=== PATIENT | female | born 2000 | race Hispanic/Latino ===

== ENCOUNTER 2025-01-28 23:32 | Emergency (ER) | payer SELFPAY ==
--- NOTE | 2025-01-29 00:21 | ER ---
Nurse's Notes [facility] Name: Tanesha Weaver Age: 24 yrs Sex: Female : 2000 Arrival Date: 01/28/2025 Time: 23:32 Bed 6 Private MD: Diagnosis: Foreign body in vulva and vagina-suspected, not found Presentation: 01/29 00:03 Chief complaint: Patient states: PT STATES SHE PUT IN A TAMPON AT [employer] 8AM THIS br2 MORNING AND DOESN'T REMEMBER IF SHE TOOK IT OUT. NO SYMPTOMS, JUST CONCERNED BECAUSE SHE CAN'T FIND STRING. Coronavirus screen: Client denies travel out of the [place] in the last 14 days. Ebola Screen: Patient denies exposure to infectious person. Initial Sepsis Screen: Does the patient meet any 2 criteria? No. Patient's initial sepsis screen is negative. Does the patient have a suspected source of infection? No. Patient's initial sepsis screen is negative. Risk Assessment: Do you want to hurt yourself or someone else? Patient reports no desire to harm self or others. Onset of symptoms is unknown. 00:03 Method Of Arrival: Ambulatory br2 00:03 Acuity: WENDI 4 br2 Triage Assessment: 00:05 General: Appears in no apparent distress. comfortable, Behavior is calm, cooperative. br2 Pain: Denies pain. 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 - Infectious Disease History:: Denies. - Social history:: Smoking status: Patient denies any tobacco usage or history of. Patient/guardian denies using alcohol, street drugs. - Family history:: not pertinent. Screenin:24 [facility] ED Fall Risk Assessment (Adult) History of falling in the last 3 months, vc1 including since admission No falls in past 3 months (0 pts) Confusion or Disorientation No (0 pts) Intoxicated or Sedated No (0 pts) Impaired Gait No (0 pts) Mobility Assist Device Used No (0 pt) Altered Elimination No (0 pt) Score/Fall Risk Level 0 - 2 = Low Risk Oriented to surroundings, Maintained a safe environment, Educated pt \T\ family on fall prevention, incl call for assistance when getting out of bed, Assessed \T\ reinforced patient's understanding of fall precautions, Hourly rounding (assess needs \T\ fall precautionary measures) done. Abuse screen: Denies threats or abuse. Nutritional screening: No deficits noted. Tuberculosis screening: No symptoms or risk factors identified. Vital Signs: 00:03 BP 131 / 97; Pulse 66; Resp 18; Temp 98.6; Pulse Ox 100% ; Weight 53.52 kg; Height 5 br2 ft. 2 in. ; Pain 0/10; 00:26 BP 131 / 87; Pulse 84; Resp 16; Pulse Ox 100% ; vc1 00:03 Body Mass Index 21.58 (53.52 kg, 157.48 cm) br2 00:03 Pain Scale: Adult br2 ED Course: 01/28 23:35 Patient arrived in ED. mr 23:46 Toi Gale MD is Attending Physician. minh 01/29 00:05 Triage completed. br2 00:05 Arm band placed on right wrist. br2 00:05 Patient has correct armband on for positive identification. Placed in gown. Bed in low vc1 position. Call light in reach. Provided Education on: take ibuprofen for discomfort. Pulse ox on. NIBP on. 00:09 Aleksander Andersen, RN is Primary Nurse. bm8 00:25 Assist provider with pelvic exam: Set up pelvic tray. Performed by Toi Gale MD vc1 Patient tolerated well. No tampon visualized. Patient did not have IV access during this emergency room visit. Administered Medications: No medications were administered Medication: 00:26 VIS not applicable for this client. vc1 Outcome: 00:21 Discharge ordered by . minh 00:25 Discharged to home ambulatory, with friend, 1 00:25 Condition: stable 00:25 Discharge instructions given to patient, Instructed on discharge instructions, follow up and referral plans. Demonstrated understanding of instructions, follow-up care, 00:26 Patient left the ED. vc1 Signatures: Toi Gale MD MD cha Rivera, Mary, Reg Reg mr Mirella Sellers RN RN vc1 Aleksander Andersen, RN RN bm8 Catalina Newell, RN RN br2
--- NOTE | 2025-01-29 00:21 | EDPHYS ---
Physician Documentation [facility] Name: Tanesha Weaver Age: 24 yrs Sex: Female : 2000 Arrival Date: 01/28/2025 Time: 23:32 Bed 6 Private MD: MIREIL[place] Physician Toi Gale HPI: 01/29 00:06 This 24 yrs old Female presents to ER via Ambulatory with complaints of minh Foreign body In Vagina. 00:06 The patient presents with fb vag. Onset: The symptoms/episode began/occurred this minh morning. Modifying factors: The symptoms are alleviated by nothing, the symptoms are aggravated by nothing. Associated signs and symptoms: The patient has no apparent associated signs or symptoms. Severity of symptoms: At their worst the symptoms were very mild, in the emergency department the symptoms are unchanged. The patient is sexually active, reportedly has a single partner. The patient has not experienced similar symptoms in the past. 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 - Infectious Disease History:: Denies. - Social history:: Smoking status: Patient denies any tobacco usage or history of. Patient/guardian denies using alcohol, street drugs. - Family history:: not pertinent. ROS: 00:06 Constitutional: Negative for fever, chills, and weight loss, Eyes: Negative for injury, minh pain, redness, and discharge, ENT: Negative for injury, pain, and discharge, Neck: Negative for injury, pain, and swelling, Cardiovascular: Negative for chest pain, palpitations, and edema, Respiratory: Negative for shortness of breath, cough, wheezing, and pleuritic chest pain, Abdomen/GI: Negative for abdominal pain, nausea, vomiting, diarrhea, and constipation, Back: Negative for injury and pain, MS/Extremity: Negative for injury and deformity, Skin: Negative for injury, rash, and discoloration, Neuro: Negative for headache, weakness, numbness, tingling, and seizure, Psych: Negative for depression, anxiety, suicide ideation, homicidal ideation, and hallucinations, Allergy/Immunology: Negative for hives, rash, and allergies, Endocrine: Negative for neck swelling, polydipsia, polyuria, polyphagia, and marked weight changes, Hematologic/Lymphatic: Negative for swollen nodes, abnormal bleeding, and unusual bruising, 00:06 : Positive for possible tampon, Exam: 00:08 Constitutional: This is a well developed, well nourished patient who is awake, alert, minh and in no acute distress. Head/Face: Normocephalic, atraumatic. Eyes: Pupils equal round and reactive to light, extra-ocular motions intact. Lids and lashes normal. Conjunctiva and sclera are non-icteric and not injected. Cornea within normal limits. Periorbital areas with no swelling, redness, or edema. ENT: Nares patent. No nasal discharge, no septal abnormalities noted. Tympanic membranes are normal and external auditory canals are clear. Oropharynx with no redness, swelling, or masses, exudates, or evidence of obstruction, uvula midline. Mucous membranes moist. Neck: Trachea midline, no thyromegaly or masses palpated, and no cervical lymphadenopathy. Supple, full range of motion without nuchal rigidity, or vertebral point tenderness. No Meningismus. Chest/axilla: Normal chest wall appearance and motion. Nontender with no deformity. No lesions are appreciated. Cardiovascular: Regular rate and rhythm with a normal S1 and S2. No gallops, murmurs, or rubs. Normal PMI, no JVD. No pulse deficits. Respiratory: Lungs have equal breath sounds bilaterally, clear to auscultation and percussion. No rales, rhonchi or wheezes noted. No increased work of breathing, no retractions or nasal flaring. Abdomen/GI: Soft, non-tender, with normal bowel sounds. No distension or tympany. No guarding or rebound. No evidence of tenderness throughout. Back: No spinal tenderness. No costovertebral tenderness. Full range of motion. Skin: Warm, dry with normal turgor. Normal color with no rashes, no lesions, and no evidence of cellulitis. MS/ Extremity: Pulses equal, no cyanosis. Neurovascular intact. Full, normal range of motion., bilateral aka Neuro: Awake and alert, GCS 15, oriented to person, place, time, and situation. Cranial nerves II-XII grossly intact. Motor strength 5/5 in all extremities. Sensory grossly intact. Cerebellar exam normal. Normal gait. Psych: Awake, alert, with orientation to person, place and time. Behavior, mood, and affect are within normal limits. Vital Signs: 00:03 BP 131 / 97; Pulse 66; Resp 18; Temp 98.6; Pulse Ox 100% ; Weight 53.52 kg; Height 5 br2 ft. 2 in. ; Pain 0/10; 00:26 BP 131 / 87; Pulse 84; Resp 16; Pulse Ox 100% ; vc1 00:03 Body Mass Index 21.58 (53.52 kg, 157.48 cm) br2 00:03 Pain Scale: Adult br2 MDM: 01/28 23:46 Medical Screening Exam initiated minh 01/29 00:09 Differential diagnosis: fb in vagina. Data reviewed: vital signs, nurses notes. minh Consideration of Admission/Observation Escalation of care including admission/observation considered. Administered Medications: No medications were administered Disposition Summary: 01/29/25 00:21 Discharge Ordered Notes: Location: Home minh Problem: new minh Symptoms: have improved minh Condition: Stable minh Diagnosis - Foreign body in vulva and vagina - suspected, not found minh Followup: minh - With: Private Physician - When: 2 - 3 days - Reason: Recheck today's complaints, Continuance of care, Re-evaluation by your physician Discharge Instructions: - Discharge Summary Sheet minh - Vaginal Foreign Body, [id number] minh - Vaginal Foreign Body minh Forms: - Medication Reconciliation Form minh - Antibiotic Education minh - Prescription Opioid Use minh - Patient Portal Instructions minh - Leadership Thank You Letter minh Signatures: Toi Gale MD MD cha Riddle, Belinda, RN RN br2
[2025-01-29 05:06] VITALS: O2SAT 100
[2025-01-29 05:07] VITALS: BP 131/97; TEMP 98.6
== END 2025-01-29 00:26 | disposition home or self-care (01) ==
LOC: ER 23:32
DX: T19.2XXA Foreign body in vulva and vagina, initial encounter (principal); Z71.1 Person with feared health complaint in whom no diagnosis is made
CPT/HCPCS: 99283